=== PATIENT | male | born 1995 | race Caucasian/White ===

== ENCOUNTER 2020-04-17 03:08 | Emergency (ER) | payer OTHER ==
[~2020-04-17] VITALS: Ht 167.6 cm; Wt 82.6 kg
[2020-04-17 03:30] VITALS: Ht 167.6 cm; Wt 82.6 kg
[2020-04-17 04:50] VITALS: BP 122/75
== END 2020-04-17 04:50 | disposition home or self-care (01) ==
LOC: ED 03:08
DX: T25.221A Burn of second degree of right foot, initial encounter (principal); X10.2XXA Contact with fats and cooking oils, initial encounter; Y93.89 Activity, other specified; Y92.89 Other specified places as the place of occurrence of the external cause; Y99.8 Other external cause status